=== PATIENT | female | born 1990 | race Caucasian/White ===

== ENCOUNTER → 2016-12-04 | Outpatient (CLI) | payer OTHER ==
[~2016-12-04] MED LIST: ACET-1256 PO; CLIN300C2 PO; FLUO10CA48 PO
--- NOTE | 2016-12-04 17:35 | DIAGNOSTIC IMAGING REPORT ---
ULTRASOUND LEFT LOWER EXTREMITY VENOUS CLINICAL HISTORY: Left calf pain. COMPARISON STUDY: No priors. TECHNIQUE: Real-time, grayscale, and color Doppler sonography of the deep veins of the left lower extremity was performed from the inguinal crease to the calf. Compression and augmentation were utilized. FINDINGS: There is no sonographic evidence of deep venous thrombosis identified in the left lower extremity. The common femoral, superficial femoral, and popliteal veins are patent and normally compressible. The greater saphenous vein and the profunda femoris vein at the junction with the common femoral vein are clear. The visualized calf veins are patent. No abnormality is identified in the left thigh at the indicated site of interest. IMPRESSION: There is no sonographic evidence of deep venous thrombosis identified in the left lower extremity. Electronically signed by: Amarjit Lucio M.D. 12/04/2016 5:34 PM Dictated Date/Time: 12/04/2016 5:33 PM
== END | disposition home or self-care (01) ==
LOC: C.ULTR 16:54
PROVIDERS: ATTEND Nurse Practitioner
DX: M79.662 Pain in left lower leg (principal)

== ENCOUNTER 2016-12-15 10:00 | Emergency (ER) | payer OTHER ==
[~2016-12-15] VITALS: Ht 172.7 cm; Wt 81.2 kg
[2016-12-15 10:07] VITALS: TEMP 39; Ht 172.7 cm; Wt 81.2 kg
[2016-12-15] MEDS ORDERED: ACET-1256 PO (10:15)
[2016-12-15] MEDS ORDERED: FLUO10CA48 PO (10:15)
[2016-12-15] MEDS ORDERED: ACETAMINOPHEN 500 MG TAB PO STA (10:26)
--- NOTE | 2016-12-15 10:31 | EMERGENCY ROOM VISIT NOTE ---
History First contact with patient: 10:18 Chief Complaint: FLU LIKE SX Stated Complaint: FEVER, COUGH, CHEST AND THROAT PAIN, HEAD BETTYE. History of Present Illness The patient is a 26 year old female who presents to the Emergency Room with complaints of flulike symptoms. The patient's symptoms started 3 days ago. She has had a productive cough, fever, sinus congestion, sore throat, generalized arthralgias and myalgias. She has not been around anyone who is sick. She rates her discomfort a 6/10. She denies any chest pain or trouble breathing. She denies any abdominal pain, nausea or vomiting. She denies any diarrhea. The patient last took Tylenol at 3 AM. Review of Systems A 10 system review of systems was completed with positives and pertinent negatives listed in the HPI. Past Medical/Surgical History Medical Problems: (1) Asthma (2) Neck muscle spasm (3) Neck muscle spasm (4) Ovarian cyst (5) Ovarian cyst (6) Torticollis, spasmodic Family History Diabetes mellitus FH: cancer Hypertension Social History Smoking Status: Never Smoker Marital Status: single Housing Status: lives with family Occupation Status: employed Current/Historical Medications Scheduled Fluoxetine (Prozac), 10 MG PO DAILY Scheduled PRN Acetaminophen (Tylenol), 2 TAB PO Q6 PRN for Pain or Fever Allergies Coded Allergies: No Known Allergies (Unverified , 12/15/16) Physical Exam Vital Signs Date Time Temp Pulse Resp B/P Pulse Ox O2 Delivery O2 Flow Rate FiO2 12/15/16 12:10 97 18 136/74 96 Room Air 12/15/16 10:07 39.0 125 18 138/74 99 Room Air Physical Exam VITALS: Vitals are noted on the nurse's note and reviewed by myself. Vital signs stable. The patient is febrile. Her temperature is 39C. GENERAL: This is a 26-year-old female, in no acute distress, nondiaphoretic, well-developed well-nourished. SKIN: The skin was without rashes, erythema, edema, or bruising. There is no tenting of the skin. Capillary reflex less than 2 seconds. HEAD: Normocephalic atraumatic. EARS: External auditory canals clear, tympanic membranes pearly mcfarland without erythema or effusion bilaterally. EYES: Pupils equal round and reactive to light and accommodation. Conjunctivae without injection, sclerae without icterus. Extraocular movements intact. NOSE: Patent, turbinates without inflammation or discharge. No sinus tenderness. MOUTH: Mucous membranes moist. Tonsils are not enlarged. The posterior pharynx is mildly erythematous. Uvula midline. Airway patent. Tongue does not deviate. NECK: Supple without nuchal rigidity. No lymphadenopathy. No thyromegaly. Cervical spine is nontender. No JVD. HEART: Regular rate and rhythm without murmurs gallops or rubs. LUNGS: Clear to auscultation bilaterally without wheezes, rales or rhonchi. No retractions or accessory muscle use. MUSCULOSKELETAL: No muscle atrophy, erythema, or edema noted. Full range of motion in all extremities. Normal gait. Strength 5/5 throughout. NEURO: Patient was alert and oriented to person place and time. No focal neurological deficits. Medical Decision & Procedures ER Provider Diagnostic Interpretation: CHEST 2 VIEWS ROUTINE CLINICAL HISTORY: cough, fever dyspnea COMPARISON STUDY: 01/15/2013 FINDINGS: The bones soft tissues and hemidiaphragms are normal. The cardiomediastinal silhouette is normal. The lungs are clear. The pulmonary vasculature is normal. IMPRESSION: Negative chest. Laboratory Results Test 12/15/16 11:00 Influenza Type A Antigen POS for Influ A (NEG) Influenza Type B Antigen Neg for Influ B (NEG) Medications Administered Medications (Trade) Dose Ordered Sig/Ajay Route Start Time Stop Time Status Last Admin Dose Admin Acetaminophen (Tylenol Tab) 1,000 mg NOW STAT PO 12/15/16 10:26 12/15/16 10:27 DC 12/15/16 11:01 1,000 MG Ibuprofen (Motrin Tab) 600 mg NOW STAT PO 12/15/16 11:59 12/15/16 12:00 DC 12/15/16 12:09 600 MG ED Course The patient was seen and examined. Previous visits were reviewed. The patient was febrile on initial triage. She was positive for influenza A. Chest x-ray does not reveal any obvious infiltrate. She was given 1 g of oral Tylenol and her fever decreased only slightly She was then given 600 mg oral ibuprofen. The patient does take Prozac. She is concerned about the potential interaction between NSAIDs and SSRIs. I advised her that there is a potential for increased risk of bleeding and she should monitor for signs of GI bleeding. In this case, I feel that she does need the nonsteroidal anti-inflammatory to help with her temperature control. The patient is outside of the window for Tamiflu. The patient was given a note for work. She should use conservative management. She should return with worsening symptoms. Medical Decision The differential diagnosis includes influenza, pneumonia, viral illness, among others Impression Primary Impression: Influenza A Departure Information Dispostion Home / Self-Care Condition GOOD Referrals No Doctor, Assigned (PCP) Patient Instructions ED Flu, [facility] Additional Instructions Ibuprofen 600 mg every 6-8 hours for pain/fever Tylenol 1 g every 4-6 hours for pain/fever; no more than 4 g of Tylenol in 24 hours Ibuprofen and Prozac can potentially increase the risk for stomach bleeding; return with any bloody or dark colored stool, vomiting blood or generalized worsening symptoms Rest Increase fluids Return with any worsening symptoms
--- NOTE | 2016-12-15 11:38 | DIAGNOSTIC IMAGING REPORT ---
CHEST 2 VIEWS ROUTINE CLINICAL HISTORY: cough, fever dyspnea COMPARISON STUDY: 01/15/2013 FINDINGS: The bones soft tissues and hemidiaphragms are normal. The cardiomediastinal silhouette is normal. The lungs are clear. The pulmonary vasculature is normal. IMPRESSION: Negative chest. Electronically signed by: Raleigh Marx M.D. 12/15/2016 11:37 AM Dictated Date/Time: 12/15/2016 11:37 AM
[2016-12-15] MEDS ORDERED: IBUPROFEN 600 MG TAB PO STA (11:59)
[2016-12-15 12:10] VITALS: BP 136/74; PULSE 97; O2SAT 96
== END 2016-12-15 12:26 | disposition home or self-care (01) ==
LOC: C.EDB 10:02 → C.EDC 12:26
DX: J11.1 Influenza due to unidentified influenza virus with other respiratory manifestations (principal)

== ENCOUNTER 2017-02-16 08:36 | Emergency (ER) | payer OTHER ==
[~2017-02-16] VITALS: Ht 172.7 cm; Wt 80.3 kg
[~2017-02-16 08:36] MED LIST changes: -CLIN300C2 PO
[2017-02-16 08:44] VITALS: TEMP 37.2; Ht 172.7 cm; Wt 80.3 kg
[2017-02-16] MEDS ORDERED: AMPICILLIN/SULBACTAM SOD INJ 3,000 MG in SODIUM CHLORIDE 0.9% 100ML 100 ML IV STA (09:26)
[2017-02-16 10:16] LABS: BASO % 0.1 %; BASO ABS # 0.01 K/uL (0-0.2); COMPLETE YES; EOS % 0.7 %; IG% 0.3 %; LYMPH % 14.9 %; LYMPH ABS # 1.04 K/uL (1.2-3.4); MEAN CELL VOLUME 92.5 fL (80-100); MEAN CORPUSCULAR HEMOGLOBIN 31.9 pg (25-34); MEAN CORPUSCULAR HGB CONC 34.5 g/dl (32-36); MEAN PLATELET VOLUME 10.3 fL (7.4-10.4); MONO % 7.9 %; NEUT % 76.1 %; PLATELET COUNT 239 K/uL (130-400); RED BLOOD COUNT 4.54 M/uL (4.2-5.4); WHITE BLOOD COUNT 6.98 K/uL (4.8-10.8)
[2017-02-16 10:39] LABS: BUN/CREATININE RATIO 9.6 (10-20); CALCIUM 8.9 mg/dl (8.5-10.1); CREATININE 0.67 mg/dl (0.60-1.20); POTASSIUM 4.2 mmol/L (3.5-5.1)
[2017-02-16] MEDS ORDERED: KETOROLAC TROMETHAMINE 30 MG/ML VIAL IV STA (10:43)
[2017-02-16] MEDS: DEXAMETHASONE SOD INJ 4 MG/ML VIAL IV STA ×2 (10:43→12:14)
[2017-02-16] MEDS ORDERED: CLIN300C2 PO (12:27)
[2017-02-16 12:45] VITALS: BP 132/70; PULSE 72; O2SAT 98
--- NOTE | 2017-02-16 16:44 | EMERGENCY ROOM VISIT NOTE ---
History First contact with patient: 09:12 Chief Complaint: FACIAL PAIN/INJURY Stated Complaint: SEVERE EAR AND NECK PAIN,FEVER History of Present Illness The patient is a 27 year old white female who presents to the Emergency Room with complaints of right-sided ear pain, swelling, and redness that have developed over the last few days. She denies any trauma to the ear or right side of her face. She denies wearing any earrings. Symptoms developed on Friday. They progressed into . She was seen at an urgent care yesterday and was prescribed Keflex. She took it yesterday but states the pain , redness, and swelling have increased. She states she had a fever last night of 101.2. She is currently afebrile. She has been using Tylenol and Motrin without significant improvement in her discomfort. No prior history of similar episode. No change in hearing. She has a known history of right lower dental infection with subsequent root canal. She states the tooth does not hurt and there is been no drainage. She does not think it is related. No other cold symptoms. Review of Systems REVIEW OF SYSTEM: HEENT: No dizziness, visual problems, hearing loss, or tinnitus. There is no difficulty swallowing and no oral lesions are present. LYMPH: No prior adenopathy. PULMONARY: No cough, sputum production or hemoptysis. CARDIOVASCULAR: No chest pain, palpitations, or peripheral edema. GASTROINTESTINAL: No diarrhea, constipation, nausea, vomiting, or abdominal pain. GENITOURINARY: No dysuria, frequency, urgency or nocturia. NEUROLOGIC: No weakness, muscle tenderness, epilepsy or history of neurological problems. MUSCULOSKELETAL: No history of joint tenderness/swelling. No history of arthritis or arthralgias. SKIN: No rashes or lesions. PSYCHIATRIC: No history of depression or mental illness. ENDOCRINE: No history of diabetes, thyroid disorders, or abnormal hair growth. Past Medical/Surgical History Medical Problems: (1) Asthma (2) Neck muscle spasm (3) Neck muscle spasm (4) Ovarian cyst (5) Ovarian cyst (6) Torticollis, spasmodic Family History Diabetes mellitus FH: cancer Hypertension Mother is Social History Smoking Status: Current Every Day Smoker Smokeless Tobacco Use: No Alcohol Use: occasionally Drug Use: none Marital Status: single Housing Status: lives with family Occupation Status: employed Current/Historical Medications Scheduled Clindamycin Hcl (Cleocin), 1 CAP PO TID Allergies Coded Allergies: No Known Allergies (Unverified , 12/15/16) Physical Exam Vital Signs Date Time Temp Pulse Resp B/P Pulse Ox O2 Delivery O2 Flow Rate FiO2 02/16/17 12:45 72 16 132/70 98 02/16/17 12:17 72 16 132/70 98 Room Air 02/16/17 10:21 72 18 132/75 98 Room Air 02/16/17 08:44 37.2 115 17 147/81 99 Room Air Pain Rating (0-10): 0 Physical Exam Gen.: Well-developed, well-nourished, young white female, in obvious discomfort. No acute distress. She is laying on a bed. Alert and oriented. Skin:Warm and dry with good turgor. No lesions. No ecchymosis. She has visible erythema and edema around the right ear. It includes dependent, and lobe. The lobe is very edematous. It appears very similar to cauliflower ear deformity. There is very tender to touch. Swelling extends into the preauricular area and across the angle of the mandible. Parotid gland is nonspecifically swollen but there is diffuse edema in the area. No distinct abscess. There is nothing to drain. The patient is not diaphoretic. No abrasions. HEENT: Normocephalic atraumatic. Eyes PERRLA, EOMI. No conjunctiva or scleral injection. Ears TMs intact bilaterally with good light reflexes. No erythema or bulging. No hemotympanum. Canals are patent. Right canal has edema of the floor, narrowing the canal. There is no distinct otitis externa. No pustules or masses are noted. Nares patent bilaterally without turbinate enlargement. No significant drainage. No epistaxis. Oropharynx without erythema or exudate. Uvula midline, oral mucosa moist. No lesions present. Lymphatics are palpated with right anterior periauricular node enlargement. They are tender. No posterior chain enlargement or tenderness. Heart: Heart RRR. No MGR. No carotid bruit. Peripheral pulses are 2+. Lungs: Lungs are clear to auscultation. No crackles rhonchi or wheezing. Good air movement. The patient is able to take a deep breath. Neurologic: Gross sensation is intact across the face and upper extremities by soft touch. Medical Decision & Procedures Laboratory Results 02/16/17 09:55 Red Blood Count 4.54, Mean Corpuscular Volume 92.5, Mean Corpuscular Hemoglobin 31.9, Mean Corpuscular Hemoglobin Concent 34.5, Mean Platelet Volume 10.3, Neutrophils (%) (Auto) 76.1, Lymphocytes (%) (Auto) 14.9, Monocytes (%) (Auto) 7.9, Eosinophils (%) (Auto) 0.7, Basophils (%) (Auto) 0.1, Neutrophils # (Auto) 5.31, Lymphocytes # (Auto) 1.04, Monocytes # (Auto) 0.55, Eosinophils # (Auto) 0.05, Basophils # (Auto) 0.01 02/16/17 09:55 Test 02/16/17 09:55 White Blood Count 6.98 K/uL (4.8-10.8) Red Blood Count 4.54 M/uL (4.2-5.4) Hemoglobin 14.5 g/dL (12.0-16.0) Hematocrit 42.0 % (37-47) Mean Corpuscular Volume 92.5 fL (80-100) Mean Corpuscular Hemoglobin 31.9 pg (25-34) Mean Corpuscular Hemoglobin Concent 34.5 g/dl (32-36) Platelet Count 239 K/uL (130-400) Mean Platelet Volume 10.3 fL (7.4-10.4) Neutrophils (%) (Auto) 76.1 % Lymphocytes (%) (Auto) 14.9 % Monocytes (%) (Auto) 7.9 % Eosinophils (%) (Auto) 0.7 % Basophils (%) (Auto) 0.1 % Neutrophils # (Auto) 5.31 K/uL (1.4-6.5) Lymphocytes # (Auto) 1.04 K/uL (1.2-3.4) Monocytes # (Auto) 0.55 K/uL (0.11-0.59) Eosinophils # (Auto) 0.05 K/uL (0-0.5) Basophils # (Auto) 0.01 K/uL (0-0.2) RDW Standard Deviation 44.0 fL (36.4-46.3) RDW Coefficient of Variation 13.0 % (11.5-14.5) Immature Granulocyte % (Auto) 0.3 % Immature Granulocyte # (Auto) 0.02 K/uL (0.00-0.02) Anion Gap 5.0 mmol/L (3-11) Est Creatinine Clear Calc Drug Dose 140.3 ml/min Estimated GFR () 139.6 Estimated GFR (Non- 120.5 BUN/Creatinine Ratio 9.6 (10-20) Calcium Level 8.9 mg/dl (8.5-10.1) Chemistry Specimen Hemolysis CBC and PRP were obtained. They're unremarkable. Medications Administered Medications (Trade) Dose Ordered Sig/Ajay Route Start Time Stop Time Status Last Admin Dose Admin Ampicillin Sodium/ Sulbactam Sodium/ Sodium Chloride (Unasyn Inj/Nss 100ml) 108 ml @ 200 mls/hr NOW STAT IV 02/16/17 09:26 02/16/17 09:58 DC 02/16/17 10:11 200 MLS/HR Ketorolac Tromethamine (Toradol Inj) 30 mg NOW STAT IV 02/16/17 10:43 02/16/17 10:44 DC 02/16/17 10:55 30 MG Dexamethasone Sodium Phosphate (Decadron Inj) 10 mg NOW STAT IV 02/16/17 10:43 02/16/17 10:44 DC 02/16/17 12:14 10 MG Unasyn 3 g IV, Toradol 30 mg IV, dexamethasone 10 mg IV ED Course Patient was educated regarding today's findings. Conservative care measures were discussed. IV was established. Labs were obtained. She was given Toradol 30 mg IV for pain control. She was also given Unasyn 3 g IV for antibiotic coverage. She was previously on Keflex for a day but states it was not helping. Prescription was given for clindamycin 300 mg 3 times a day 10 days. She refused any narcotic medication. She will continue to use Tylenol and Motrin every 6 hours as needed for discomfort. She was given Decadron 10 mg IV to assist with alleviating her discomfort and swelling. I did speak with Dr. Arguello from ENT to discuss the case. He will follow her up in the office if her symptoms are not improving. She is aware. Warm moist compresses to the area may improve her comfort. Return to the ED for any acute changes. Medical Decision Possibility of dental abscess, skin abscess, cellulitis, otitis externa, infected ear piercing, parotitis, and strep pharyngitis were considered, among others Impression Primary Impression: Preauricular cellulitis Departure Information Dispostion Home / Self-Care Prescriptions Clindamycin Hcl (CLEOCIN) 300 Mg Cap 1 CAP PO TID for 10 Days, #30 CAP Prov: [employer] 02/16/17 Forms HOME CARE DOCUMENTATION FORM, MOTRIN USE, TYLENOL USE, IMPORTANT VISIT INFORMATION Patient Instructions My [facility] Additional Instructions Apply warm moist compresses to the ear several times per day Stop the Keflex Start clindamycin 3 mg 3 times a day 10 days If symptoms are not improving, follow up with Dr. Arguello in the office. Tylenol and Motrin every 6 hours as needed for discomfort Return to the ED for any acute changes
== END 2017-02-16 12:45 | disposition home or self-care (01) ==
LOC: C.EDB 08:37
DX: H60.11 Cellulitis of right external ear (principal); J45.909 Unspecified asthma, uncomplicated; Z83.3 Family history of diabetes mellitus; Z80.9 Family history of malignant neoplasm, unspecified; Z82.49 Family history of ischemic heart disease and other diseases of the circulatory system; F17.210 Nicotine dependence, cigarettes, uncomplicated

== ENCOUNTER 2018-02-19 09:51 | Emergency (ER) | payer OTHER ==
[~2018-02-19] VITALS: Ht 172.7 cm; Wt 82.6 kg
[2018-02-19 10:00] VITALS: TEMP 36.8; Ht 172.7 cm; Wt 82.6 kg
[2018-02-19] MEDS ORDERED: IBUPROFEN 600 MG TAB PO STA (10:15)
[2018-02-19] MEDS ORDERED: ACETAMINOPHEN 500 MG TAB PO STA (10:15)
[2018-02-19] MEDS ORDERED: AMOXICILLIN/CLAVULANATE TAB 875 MG TAB PO ONE (10:15)
[2018-02-19] MEDS ORDERED: OXYMETAZOLINE HCL 0.05% NA SPR 15 ML BTL ONE (10:15)
[2018-02-19] MEDS ORDERED: FAMOTIDINE 20 MG TAB PO ONE (10:15)
--- NOTE | 2018-02-19 10:19 | EMERGENCY ROOM VISIT NOTE ---
History Report prepared by Sara: Ely Rock Under the Supervision of: Dr. Kane Tolentino M.D. 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 Positive headache, weakness, nausea, body aches, and brown nasal drainage. Negative vomiting, sore throat. She states this morning she woke up for work and had a pain where her teeth are but it has worsened and is intermittent. She notes that blowing her nose makes it slightly better. She has not taken any Tylenol or ibuprofen. 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 She is a current smoker. 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 A total of eight systems were reviewed and were otherwise negative. Past Medical & Surgical Medical Problems: (1) Asthma (2) Neck muscle spasm (3) Neck muscle spasm (4) Ovarian cyst (5) Ovarian cyst (6) Torticollis, spasmodic Family History Diabetes mellitus FH: cancer Hypertension Social History Smoking Status: Current Every Day Smoker Alcohol Use: occasionally Drug Use: none Marital Status: single Housing Status: lives with family Occupation Status: employed Current/Historical Medications Scheduled Amoxicillin & Pot Clavulanate (Augmentin 875-125 mg), 875 MG PO BID Allergies Coded Allergies: Cephalexin (Unverified Allergy, Unknown, lite headed, felt was going to fall to ground, 02/19/18) Physical Exam Vital Signs Date Time Temp Pulse Resp B/P (MAP) Pulse Ox O2 Delivery O2 Flow Rate FiO2 02/19/18 11:33 88 18 134/77 99 02/19/18 10:00 36.8 100 18 147/79 99 Room Air Physical Exam GENERAL: Awake, alert, well-appearing, NAD HENT: Normocephalic, atraumatic. Bilateral TMs clear. Good light reflex. No drainage. Body turbinates erythematous bilaterally. Clear drainage noted. Mild left maxillary pain. No crepitus, no swelling. No proptosis. Posterior pharynx is clear. EYES: Normal conjunctiva. Sclera non-icteric. PERRL. No anisocoria. NECK: Supple. No nuchal rigidity. FROM. RESPIRATORY: CTAB, no rhonchi, wheezing, crackles CARDIAC: RRR, no MRG ABDOMEN: Soft, NTND, BS+ MSK: No chest wall TTP, no LE edema SKIN: No rash or jaundice noted. Medical Decision & Procedures Medications Administered Medications (Trade) Dose Ordered Sig/Ajay Route Start Time Stop Time Status Last Admin Dose Admin Ibuprofen (Motrin Tab) 800 mg NOW STAT PO 02/19/18 10:15 02/19/18 10:17 DC 02/19/18 10:50 800 MG Acetaminophen (Tylenol Tab) 1,000 mg NOW STAT PO 02/19/18 10:15 02/19/18 10:17 DC 02/19/18 10:49 1,000 MG Oxymetazoline HCl (Afrin 0.05% Nasal [place]) 1 sprays NOW ONCE NA 02/19/18 10:15 02/19/18 10:17 DC 02/19/18 10:48 1 SPRAYS Amoxicillin/ Clavulanate Potassium (Augmentin Tab) 875 mg NOW ONCE PO 02/19/18 10:15 02/19/18 10:17 DC 02/19/18 10:48 875 MG Famotidine (Pepcid Tab) 20 mg NOW ONCE PO 02/19/18 10:15 02/19/18 10:17 DC 02/19/18 10:49 20 MG ED Course 1010: The patient was evaluated in room A9. A complete history and physical exam was performed. 1057: I reevaluated the patient. Discussed results and discharge instructions: She verbalized understanding and agreement. The patient is ready for discharge. 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 Positive headache, weakness, nausea, body aches, and brown nasal drainage. Negative vomiting, sore throat. Patient was seen and evaluated the bedside. The patient states that she may have had a concern as she had tried to blow her nose very hard and had had some URI type symptoms and there is that she thought she had a pop and had some left- sided facial pain. On exam the patient does not have any proptosis crepitus or swelling over the left side of the face. Patient is EOMI and is painless. The patient's TMs are clear posterior pharynx is clear, and I do not notice any sores or dental infection. I do not believe that imaging would be of benefit with the patient we will just treat for a possible sinusitis as she may have had some extra air escape from either her nose or sinuses given blowing her nose very hard. Patient was given medications. Upon reassessment the patient felt improved. I did discuss the plan of care. Patient is agreeable to this plan of care. The patient was also told not to blow her nose very hard. Patient was also told to sneeze with her mouth open. Patient was also given other recommendations and [id number] type treatments. Patient was told to follow-up with her PCP and was counseled on smoking cessation. Patient was given strict follow-up, discharge, and return precautions. All questions were answered. Patient was deemed suitable for outpatient follow-up at this time. Patient agreed with the plan of care and was safely discharged home. Medication Reconcilliation Current Medication List: was personally reviewed by me Blood Pressure Screening Patient's blood pressure: Elevated blood pressure Blood pressure disposition: Elevated BP felt to be situational Impression Primary Impression: Sinusitis Additional Impressions: Facial pain Encounter for smoking cessation counseling Scribe Attestation The scribe's documentation has been prepared under my direction and personally reviewed by me in its entirety. I confirm that the note above accurately reflects all work, treatment, procedures, and medical decision making performed by me. Departure Information Dispostion Home / Self-Care Prescriptions Amoxicillin & Pot Clavulanate (Augmentin 875-125 mg) 1 Tab Tab 875 MG PO BID for 7 Days, #14 TAB Prov: Kane Tolentino M.D. 02/19/18 Referrals Mike Paige M.D. (PCP) Forms HOME CARE DOCUMENTATION FORM, IMPORTANT VISIT INFORMATION, WORK / SCHOOL INSTRUCTIONS Patient Instructions ED Sinusitis Abx Tx, ED Smoking Cessation, [facility] Additional Instructions Please return to the emergency department if you have worsening or recurrent symptoms not amenable to at-home treatment. Please call for a follow-up appointment with her primary care physician. Please take your medications as prescribed. If you have other concerns and/or complaints please feel free to also call your primary care physician's office or return the ED for further evaluation, management, and treatment. You may take 800 mg Ibuprofen every 6 hours as needed for pain/fever with food unless told by your physician not to take NSAIDs. You may take tylenol 1000 mg every 6 hours as needed for pain/fever unless told by your physician to not take it or have liver problems. You may take motrin and tylenol separately or at the same time. Take your medications as prescribed. If taking an antibiotic consider taking a probiotic and/or eating yogurt, but at the least, please take with food as it can cause upset stomach. To help with your reflux type symptoms please consider smaller more frequent meals. Please do not lay down after eating. Consider avoiding spicy, citrus, peppermint, chocolate. Consider taking a PPI like Nexium 20 mg daily or an antihistamine like Pepcid 20 mg twice daily. Sitting upright may help improve your symptoms also. Do not lay down after eating or drinking. You may also try things like Tums or Maalox. Please avoid blowing her nose. Also if you have to sneeze sneeze with her mouth open. You may use the Afrin for sinus congestion. Do not use for more than 2 consecutive days. After doing that he should stop using it for several days. In the meantime he may use Flonase, saline nasal spray, hot showers, or a humidifier. You have been examined and treated today on an emergency basis only. This is not a substitute for, or an effort to provide, complete comprehensive medical care. It is impossible to recognize and treat all injuries or illnesses in a single emergency department visit. It is therefore important that you follow up closely with [facility], your PCP, and/or your specialist(s). Call as soon as possible for an appointment. Thank you for your time and consideration. I look forward to speaking with you again soon. Please don't hesitate to call us if you have any questions. Problem Qualifiers Primary Impression: Sinusitis Sinusitis location: maxillary Chronicity: acute Recurrence: not specified as recurrent Qualified Codes: J01.00 - Acute maxillary sinusitis, unspecified
[2018-02-19] MEDS ORDERED: AMOX875T PO (11:15)
[2018-02-19 11:33] VITALS: BP 134/77; PULSE 88; O2SAT 99
== END 2018-02-19 11:34 | disposition home or self-care (01) ==
LOC: C.EDB 09:53 → C.EDA 11:34
DX: J01.00 Acute maxillary sinusitis, unspecified (principal); J45.909 Unspecified asthma, uncomplicated; Z71.6 Tobacco abuse counseling; F17.210 Nicotine dependence, cigarettes, uncomplicated; Z83.3 Family history of diabetes mellitus; Z80.9 Family history of malignant neoplasm, unspecified; Z82.49 Family history of ischemic heart disease and other diseases of the circulatory system; Z88.1 Allergy status to other antibiotic agents